=== PATIENT | male | born 1965 | race Caucasian/White ===

== ENCOUNTER 2017-12-08 19:30 | Outpatient (CLI) | payer OTHER | END 2017-12-08 19:31 | disposition home or self-care (01) | LOC: SLEEPLAB 19:30 | PROVIDERS: ATTEND Family Medicine | DX: G47.33 Obstructive sleep apnea (adult) (pediatric) (principal) | CPT/HCPCS: 95811 ==

== ENCOUNTER 2018-01-21 16:17 | Outpatient (CLI) | payer OTHER ==
--- NOTE | 2018-01-21 18:32 | MRI ---
MRI LEFT KNEE WITHOUT CONTRAST: INDICATIONS: Left knee pain for several years. COMPARISON: None. FINDINGS: There is mild joint effusion. No full-thickness articular cartilage defect seen involving the patell a. There are small multifocal areas of full-thickness articular cartilage thinning involving the tacos tral trochlea, best seen on image 15 of series 6 and on image 15 of series 7. There are some margina l osteophytes off the patellofemoral compartment. The femorotibial compartment articulate cartilage appears relatively well maintained. The medial and lateral menisci are intact. The ACL, PCL, MCL, a nd LCLC are intact. The extensor mechanism is intact. Bone marrow signal intensity appears within n ormal limits. IMPRESSION: Mild osteoarthrosis of the patellofemoral compartment. POS: KAY
== END 2018-01-21 16:18 | disposition home or self-care (01) ==
LOC: MRI 16:17
PROVIDERS: ATTEND Family Medicine
DX: M25.562 Pain in left knee (principal); M17.12 Unilateral primary osteoarthritis, left knee

== ENCOUNTER 2019-08-01 08:05 | Outpatient (CLI) | payer BC, OTHER ==
--- NOTE | 2019-08-01 09:29 | RAD ---
BARIUM SWALLOW: 08/01/2019 HISTORY: Gastroesophageal reflux disease. COMPARISON: None FINDINGS: [employer] imaging of the chest demonstrates no pneumothorax, pleural fluid, focal consolidation, or alveo lar edema. A double contrast barium swallow is performed. There is a moderate-sized sliding hiatal hernia. There is mild gastroesophageal reflux elicited during this examination, to the mid thoracic esophageal region. Peristalsis appears normal. The patient swallowed a barium tablet which traverses the gastroesophagea l junction without delay. EXPOSURE DATA: 1.2 minutes fluoroscopic time 15.3 Gy per cm2 IMPRESSION: Moderate sized sliding hiatal hernia. Transcribed Date/Time: 08/01/2019 10:29 AM
== END 2019-08-01 08:06 | disposition home or self-care (01) ==
LOC: RAD 08:05
PROVIDERS: ATTEND Family Medicine
DX: K21.9 Gastro-esophageal reflux disease without esophagitis (principal); R13.10 Dysphagia, unspecified; K44.9 Diaphragmatic hernia without obstruction or gangrene
CPT/HCPCS: 74220

== ENCOUNTER 2021-09-13 14:11 | Outpatient (CLI) | payer BC, OTHER ==
[~2021-09-13 14:11] MED LIST: Magnevist 469MG/ML 20 ML VIAL ONE
== END 2021-09-13 14:12 | disposition home or self-care (01) ==
LOC: TBSIIMAG 14:11
PROVIDERS: ATTEND Student in an Organized Health Care Education/Training Program
DX: H90.42 Sensorineural hearing loss, unilateral, left ear, with unrestricted hearing on the contralateral side (principal)
CPT/HCPCS: 70553; A9579

== ENCOUNTER 2025-05-20 10:05 | Outpatient (CLI) | payer OTHER | END 2025-05-20 10:06 | disposition home or self-care (01) | LOC: BICCT 10:05 | PROVIDERS: ATTEND Internal Medicine | DX: I69.911 Memory deficit following unspecified cerebrovascular disease (principal); J32.3 Chronic sphenoidal sinusitis | CPT/HCPCS: 70450 ==